=== PATIENT | male | born 1955 | race Caucasian/White ===

== ENCOUNTER 2021-07-13 13:22 | Emergency (ER) | payer BC ==
[2021-07-13] MEDS ORDERED: oxyCODONE 5 MG TABLET PO STA (13:33)
--- NOTE | 2021-07-13 13:34 | ED Physician Documentation ---
PD HPI LOWER EXT INJURY - Stated complaint Stated Complaint: RIGHT FOOT INJURY - History obtained from History obtained from: Patient (He tripped and fell yesterday with his foot going under him and now has severe pain of the lateral right foot when trying to walk. No other injuries.) PD PAST MEDICAL HISTORY - Past Medical History Cardiovascular: Hypertension GI: GI bleed - Past Surgical History Past Surgical History: Yes Cardiovascular: Coronary stent, Angioplasty - Present Medications Home Medications: Ambulatory Orders Medication Instructions Recorded Confirmed Clopidogrel [Plavix] 75 mg PO DAILY 07/13/21 07/13/21 Cyanocobalamin (Vitamin B-12) 1 tab PO DAILY 07/13/21 07/13/21 [Vitamin B-12 (1000 mcg sublingual)] Ergocalciferol [Vitamin D2] 1 cap PO Q7D 07/13/21 07/13/21 Losartan [Cozaar] 50 mg PO BID 07/13/21 07/13/21 Rosuvastatin Calcium [Crestor] 40 mg PO DAILY 07/13/21 07/13/21 traMADol [Ultram] 50 mg PO DAILY PRN 07/13/21 07/13/21 - Allergies Allergies/Adverse Reactions: Allergies Allergy/AdvReac Type Severity Reaction Status Date / Time allopurinol AdvReac Unknown Verified 07/13/21 13:38 NSAIDS (Non-Steroidal AdvReac Unknown Verified 07/13/21 13:38 Anti-Inflamma - Social History Does the pt smoke?: No Smoking Status: Never smoker Does the pt drink ETOH?: Yes Does the pt have substance abuse?: No - Immunizations Immunizations are current?: Yes PD ED PE NORMAL - Vitals Vital signs reviewed: Yes - General General: Alert and oriented X 3, No acute distress - Extremities Extremities: Other (Tender to the proximal fifth metatarsal and cuboid bone on the right without deformity or ankle tenderness.) - Neuro Neuro: Alert and oriented X 3, Normal speech Results - Vitals Vitals: Vital Signs - 24 hr 07/13/21 13:35 Temperature 36.4 C L Heart Rate 78 Respiratory 18 Rate Blood Pressure 156/88 H O2 Saturation 95 Oxygen O2 Source Room air PD MEDICAL DECISION MAKING - ED course ED course: 65-year-old gentleman with a right foot injury. He is exquisitely tender over the cuboid. X-ray read as negative with the exception of degenerative disease of the midfoot. On review of this x-ray by me I do wonder if some of the bony fragments lateral to the cuboid are potentially more of an acute avulsion type fracture. This was discussed with the patient and he is placed in a boot. I do not see any reason he could not weight-bear despite that finding. He declined prescription pain medications. Departure - Departure Disposition: 01 Home, Self Care Clinical Impression: Injury of foot Qualifiers: Encounter type: initial encounter Laterality: right Qualified Code(s): S99.921A - Unspecified injury of right foot, initial encounter Condition: Good Record reviewed to determine appropriate education?: Yes Instructions: ED Sprain Foot Follow-Up: Orthopedic Care [Provider Group] Comments: As discussed, the x-ray was read officially as normal, but my suspicion is you have an avulsion fracture of the cuboid bone of the right foot. Elevate, Tylenol and/or tramadol that you have at home for the pain. Return for new or worsening symptoms. I would keep the boot on but reasonable to weight-bear as tolerated when you can. Follow-up with the orthopedics clinic calling tomorrow for an appointment.
--- NOTE | 2021-07-13 14:21 | XRAY Report ---
PROCEDURE: Foot 3 View RT INDICATIONS: foot injury TECHNIQUE: 3 views of the foot were acquired. COMPARISON: None FINDINGS: Bones: No fractures or dislocations. No suspicious bony lesions. Degenerative changes are noted of the mid foot and within the first metacarpophalangeal joint which are mild to moderate. Soft tissues: No tibiotalar joint effusion. Spurring of the calcaneus at the plantar fascial and Ach illes insertions. IMPRESSION: No acute osseous abnormality. Reviewed by: Jose R Hines DO on 07/13/2021 1:20 PM [facility] Approved by: Jose R Hines DO on 07/13/2021 1:20 PM [facility] Station ID: [id number]
[2021-07-13 15:31] VITALS: BP 157/89
== END 2021-07-13 15:31 | disposition home or self-care (01) ==
LOC: ED 13:22
DX: S99.921A Unspecified injury of right foot, initial encounter (principal); W01.0XXA Fall on same level from slipping, tripping and stumbling without subsequent striking against object, initial encounter; I10 Essential (primary) hypertension
CPT/HCPCS: 73630; 99281; 99283; A9270

== ENCOUNTER 2023-08-02 13:52 | Outpatient (CLI) | payer MEDICARE, OTHER | END 2023-08-02 23:59 | disposition critical access hospital (66) | LOC: EMS 13:52 | DX: R41.0 Disorientation, unspecified (principal); R47.9 Unspecified speech disturbances | CPT/HCPCS: A0425; A0429 ==

== ENCOUNTER 2023-08-02 14:02 | Emergency (ER) | payer BC, MEDICARE, OTHER ==
[2023-08-02] MEDS ORDERED: iohexoL-300 100 ML VIAL ONE (14:10)
[2023-08-02 14:18] LABS: BASOPHILS % (AUTO) 0.3 %; EOSINOPHILS # (AUTO) 0.2 10^3/uL (0.0-0.7); EOSINOPHILS % (AUTO) 2.5 %; HCT - HEMATOCRIT 45.6 % (42.0-52.0); HGB - HEMOGLOBIN 14.9 g/dL (14.0-18.0); LYMPHOCYTES # (AUTO) 1.9 10^3/uL (1.5-3.5); LYMPHOCYTES % (AUTO) 30.1 %; MEAN CORPUSCULAR HGB CONC 32.7 g/dL (32.0-36.0); MEAN PLATELET VOLUME 10.2 fL (7.4-11.4); MONOCYTES # (AUTO) 0.5 10^3/uL (0.0-1.0); MONOCYTES % (AUTO) 7.2 %; NEUTROPHILS # (AUTO) 3.8 10^3/uL (1.5-6.6); NEUTROPHILS % (AUTO) 59.7 %; PLT - PLATELET COUNT 202 10^3/uL (130-450); RED CELL DISTRIBUTION WIDTH 14.2 % (12.0-15.0); WHITE BLOOD COUNT 6.4 x10^3/uL (4.8-10.8)
[2023-08-02 14:29] LABS: INR 1.1 (0.8-1.2); PT - PROTHROMBIN TIME 12.2 secs (9.9-12.6)
--- NOTE | 2023-08-02 14:30 | ED Physician Documentation ---
PD HPI FOCAL NEURO - Stated complaint Stated Complaint: POSS STROKE - Chief complaint Chief Complaint: Neuro - History obtained from History obtained from: Patient, Family, EMS - Additional information Additional information: Patient is a 67-year-old male with a history of cardiac stent, hemorrhagic stroke, on Plavix presenting for evaluation of word salad. Patient was last normal at 1300. He went to the [employer] center to drop off batteries. When he returned home he was trying to tell his a story about seeing at child that Was walking that concerned him but she states that his words were coming out like gibberish. She says that some of them were real words but that the sentences did not make sense and other words were nonsensical. She told him and asked him repeatedly to clarify what he was saying and told to that he was not making sense. She became increasingly alarmed when he continued to speak like this so called 911. When EMS arrived they also noted that he had confusion and was also having difficulties with his speech. He is a diabetic. Blood sugar was in the 130s. Patient denies headache. On upon arrival here he reports his speech is back to his baseline. Patient states he has a history of a hemorrhagic stroke last year. This occurred after he was on Paxlovid for COVID and also on Plavix. The neurologist he was seeing at [facility] hypothesized that it could be related to Paxlovid and Plavix combination. Review of Systems Constitutional: denies: Fever Cardiac: denies: Chest pain / pressure Respiratory: denies: Dyspnea Neurologic: reports: Difficulty speaking. denies: Headache PD PAST MEDICAL HISTORY - Past Medical History Past Medical History: Yes Cardiovascular: Hypertension Neuro: CVA GI: GI bleed - Past Surgical History Past Surgical History: Yes Cardiovascular: Coronary stent, Angioplasty - Present Medications Home Medications: Ambulatory Orders Medication Instructions Recorded Confirmed Clopidogrel [Plavix] 75 mg PO DAILY 07/13/21 07/13/21 Cyanocobalamin (Vitamin B-12) 1 tab PO DAILY 07/13/21 07/13/21 [Vitamin B-12 (1000 mcg sublingual)] Ergocalciferol [Vitamin D2] 1 cap PO Q7D 07/13/21 07/13/21 Losartan [Cozaar] 50 mg PO BID 07/13/21 07/13/21 Rosuvastatin Calcium [Crestor] 40 mg PO DAILY 07/13/21 07/13/21 traMADol [Ultram] 50 mg PO DAILY PRN 07/13/21 07/13/21 - Allergies Allergies/Adverse Reactions: Allergies Allergy/AdvReac Type Severity Reaction Status Date / Time allopurinol AdvReac Unknown Verified 08/02/23 14:22 NSAIDS (Non-Steroidal AdvReac Unknown Verified 08/02/23 14:22 Anti-Inflamma - Social History Does the pt smoke?: No Smoking Status: Never smoker Does the pt drink ETOH?: Yes Does the pt have substance abuse?: No - Immunizations Immunizations are current?: Yes - POLST Patient has POLST: No PD ED PE NORMAL - General General: Alert and oriented X 3, No acute distress, Well developed/nourished - HEENT HEENT: Atraumatic, PERRL, Moist mucous membranes, Pharynx benign - Neck Neck: Supple, no meningeal sign - Cardiac Cardiac: RRR, Strong equal pulses - Respiratory Respiratory: No respiratory distress, Clear bilaterally - Abdomen Abdomen: Normal bowel sounds, Soft, Non tender, Non distended - Derm Derm: Warm and dry - Neuro Neuro: Alert and oriented X 3, supervisor remelt 2-12 intact, No motor deficit, No sensory deficit, Normal speech, Other (Normal gait) Results - Vitals Vitals: Vital Signs - 24 hr 08/02/23 08/02/23 08/02/23 14:17 14:51 15:21 Temperature 37 C Heart Rate 88 89 78 Respiratory 16 16 16 Rate Blood Pressure 138/92 H 121/71 125/76 O2 Saturation 97 96 96 08/02/23 08/02/23 16:00 17:00 Temperature Heart Rate 82 76 Respiratory 16 16 Rate Blood Pressure 119/74 122/80 O2 Saturation 98 98 Oxygen O2 Source Room air - EKG (time done) 1439 EKG releavant findings:: EKG personally interpreted by author of this note. Relevant findings are: Rate 85, normal sinus rhythm, no STEMI, no ST depressions - Labs Labs: Laboratory Tests 08/02/23 08/02/23 08/02/23 14:05 14:05 14:05 WBC 6.4 RBC 4.80 Hgb 14.9 Hct 45.6 MCV 95.0 H MCH 31.0 MCHC 32.7 RDW 14.2 Plt Count 202 MPV 10.2 Neut # (Auto) 3.8 Lymph # (Auto) 1.9 [place] # (Auto) 0.5 Eos # (Auto) 0.2 Baso # (Auto) 0.0 Absolute Nucleated RBC 0.00 Nucleated RBC % 0.0 PT 12.2 INR 1.1 Sodium 138 Potassium 4.1 Chloride 105 Carbon Dioxide 24 Anion Gap 9.0 BUN 17 Creatinine 1.1 Estimated GFR (MDRD) 67 L Glucose 115 H POC Whole Bld Glucose Calcium 9.9 Total Bilirubin 0.7 AST 34 ALT 25 Alkaline Phosphatase 85 Total Protein 7.4 Albumin 4.2 Globulin 3.2 Albumin/Globulin Ratio 1.3 Lipase 45 08/02/23 14:53 WBC RBC Hgb Hct MCV MCH MCHC RDW Plt Count MPV Neut # (Auto) Lymph # (Auto) [place] # (Auto) Eos # (Auto) Baso # (Auto) Absolute Nucleated RBC Nucleated RBC % PT INR Sodium Potassium Chloride Carbon Dioxide Anion Gap BUN Creatinine Estimated GFR (MDRD) Glucose POC Whole Bld Glucose 131 H Calcium Total Bilirubin AST ALT Alkaline Phosphatase Total Protein Albumin Globulin Albumin/Globulin Ratio Lipase PD Medical Decision Making - ED course Complexity details: reviewed results, d/w patient, d/w family ED course: Patient is a 67 show male presenting for evaluation of an episode of word salad that occurred prior to arrival. It lasted approximately 30 minutes or so. It has resolved upon arrival here. He does have a history of a stroke in the past. He is on Plavix. No focal deficits here. CT head and angios were obtained and reviewed with no large vessel occlusion or hemorrhage. I did speak with [employer]. He is not a TN K candidate for several reasons. MRI is ordered. CBC, chemistries, EKG were obtained and reviewed and without significant findings. Patient understands plan for MRI. He does not want to be admitted to the hospital. Plan is that if MRI is negative for stroke he will continue on his regular Plavix dosing with plan for close follow-up. If there is a stroke then we should obtain testing to see if is a Plavix responder. D/W Dr. Lindsay (Tele stroke) - Agrees that patient is not a TNK candidate given his history of hemorrhagic bleed and also that he is on Plavix and also because his symptoms have resolved. Recommends getting an MRI. Recommends keeping him on just Plavix for now. If the MRI shows a stroke he recommends P2Y12 test to see if he is a Plavix responder. 172 - Remains symptom-free. Departure - Departure Clinical Impression: Difficulty with speech Condition: Stable Forms: PCP List
[2023-08-02 14:38] LABS: ALBUMIN 4.2 g/dL (3.2-5.5); ALBUMIN/GLOBULIN RATIO 1.3 (1.0-2.2); BILIRUBIN,TOTAL 0.7 mg/dL (0.2-1.0); CALCIUM 9.9 mg/dL (8.5-10.3); CREATININE 1.1 mg/dL (0.6-1.3); POTASSIUM 4.1 mmol/L (3.5-4.5); TOTAL PROTEIN 7.4 g/dL (6.4-8.9)
--- NOTE | 2023-08-02 14:43 | CT Report ---
PROCEDURE: Head W/O Stroke Protocol INDICATIONS: word salad/ last normal 1300 TECHNIQUE: Noncontrast 4.5 mm thick angled axial sections acquired from the foramen magnum to the vertex, with c oronal reformats. For radiation dose reduction, the following was used: automated exposure control, adjustment of mA and/or kV according to patient size. COMPARISON: None. FINDINGS: Image quality: Excellent. CSF spaces: Basal cisterns are patent. No extra-axial fluid collections. Ventricles are normal in size and shape. Brain: No midline shift. No intracranial masses or hemorrhage. [place]-white matter interface is norm al. Skull and face: Calvarium and visualized facial bones are intact, without suspicious lesions. Sinuses: Visualized sinuses and mastoids are clear. IMPRESSION: No acute intracranial pathology Findings were discussed with ordering provider Dr. Morales in the ER on 08/02/2023 at 2:41 PM. This study fulfills neurological imaging criteria for inclusion or exclusion of acute stroke therapie s based on available published neurological imaging guidelines. Reviewed by: Getachew Tolentino MD on 08/02/2023 2:42 PM PST Approved by: Getachew Tolentino MD on 08/02/2023 2:42 PM PST Station ID: [id number]
[2023-08-02] MEDS ORDERED: iohexoL-300 100 ML VIAL IVP ONE (14:44)
--- NOTE | 2023-08-02 14:54 | CT Report ---
PROCEDURE: Angio Head/Neck INDICATIONS: word salad/ last normal 1300 TECHNIQUE: After the administration of intravenous contrast, 1 mm thick sections acquired from the aortic arch t hrough the [place] of [place]. 3-dimensional knwntbm-aivprdikk-llkalhehov (MIP) and/or volume renderin g reformats were acquired of the central intracranial vasculature and neck separately. For radiation dose reduction, the following was used: automated exposure control, adjustment of mA and/or kV acco rding to patient size. COMPARISON: None. FINDINGS: Image quality: Diagnostic. HEAD CT: CSF Spaces: Basal cisterns are patent. No extra-axial fluid collections. Ventricles are normal in size and shape. Brain: The brain is within normal limits for age and scanning technique. Skull and face: Calvarium and visualized facial bones appear intact, without suspicious lesions. Sinuses: Visualized sinuses and mastoids are clear. HEAD CT ANGIOGRAPHY: Anterior circulation: Atherosclerotic calcifications are noted in distal intracranial portion of inte rnal carotid arteries bilaterally with less than 50% stenosis. The flow within the paired anterior ce rebral arteries is normal and symmetric. The flow within the middle cerebral arteries is normal and symmetric. The anterior communicating artery is seen. No aneurysms are seen. Posterior circulation: Visualized portions of the vertebral arteries demonstrate normal caliber, and join to form a normal appearing basilar artery. There is nonvisualization of right T1 segment with more distal portion of right posterior cerebral artery supplied from anterior circulation inferior po sterior communicating artery. Flow within more distal portion of bilateral posterior cerebral arterie s is normal and symmetric. No aneurysms are seen. NECK CT ANGIOGRAPHY: Carotid system: The great vessels demonstrate a conventional anatomy as they arise from the aortic a rch. The origins of the common carotid arteries appear patent. The common carotid arteries demonstr ate normal caliber and courses. The bifurcation regions are both widely patent. The internal caroti d arteries demonstrate normal calibers and courses. Posterior circulation: The origins of the vertebral arteries both appear widely patent. Dominant rig ht vertebral artery is seen. The more superior extracranial portions of both vertebral arteries also demonstrate normal courses and calibers. They join to form a normal appearing basilar artery. Soft tissues: Visualized neck soft tissues demonstrate no suspicious abnormalities. Bones: No suspicious bony lesions. Visualized cervical spine appears normally aligned. IMPRESSION: 1. No CT evidence of acute intracranial abnormalities. No area of abnormal intracranial enhancement. 2. Nonvisualization of P1 segment of right posterior cerebral artery with P2 segment supplied from an terior circulation anterior right posterior communicating artery. No other hemodynamically significan t stenosis or aneurysm is seen in the intracranial circulation. 3. No significant abnormality is seen within the arteries of the neck. The estimate of stenosis included in the report of the imaging study was calculated using the NASCET method Reviewed by: Getachew Tolentino MD on 08/02/2023 2:52 PM PST Approved by: Getachew Tolentino MD on 08/02/2023 2:52 PM PST Station ID: [id number]
--- NOTE | 2023-08-02 18:20 | MRI Report ---
PROCEDURE: Brain WO INDICATIONS: CVA symptoms/word salad TECHNIQUE: Noncontrast axial T1 spin echo, axial T2 fast spin echo, sagittal and axial FLAIR, coronal T2 fast sp in echo, axial gradient echo, axial diffusion and ADC through the brain. COMPARISON: Correlation is made with the accompanying imaging. FINDINGS: Image quality: Excellent. CSF Spaces: Basal cisterns are patent. No extra-axial fluid collections. Ventricles are normal in size and shape. Brain: No intracranial masses or hemorrhage. [place]/white matter interface is normal. Brainstem appe ars normal. Diffusion-weighted images demonstrate no acute ischemic insult. No chronic ischemic ins ults. Normal intravascular flow voids are present. Age-appropriate brain parenchymal volume loss an d chronic small vessel ischemic change can be seen. Skull and face: Calvarium has normal marrow signal. Orbits appear normal. Sinuses: Sinuses and mastoids are clear. IMPRESSION: No findings of acute or subacute infarction are seen. Age-appropriate brain parenchymal volume loss and chronic small vessel ischemic change can be seen. Reviewed by: Thomas Lynn MD on 08/02/2023 5:18 PM [facility] Approved by: Thomas Lynn MD on 08/02/2023 5:18 PM [facility] Station ID: [id number]
[2023-08-02 18:38] VITALS: BP 135/86; O2SAT 100
--- NOTE | 2023-08-02 18:49 | ED Physician Documentation ---
ED Addendum - Addendum Addendum: 08/02/23 18:47 Patient was signed out to me by Dr. Morales, patient is awaiting an MRI, if MRI is negative, plan is to DC home on current medications. MRI resulted and does not show any acute abnormalities. Patient will be discharged home. Asymptomatic at this time. Patient counseled regarding signs and symptoms for which I believe and urgent re-evaluation would be necessary. Patient with good understanding of and agreement to plan and is comfortable going home at this time This document was made in part using voice recognition software. While efforts are made to proofread this document, sound alike and grammatical errors may occur. Departure - Departure Disposition: 01 Home, Self Care Clinical Impression: Difficulty with speech, TIA (transient ischemic attack) Condition: Stable Instructions: ED Transient Ischemic Attack Follow-Up: your,doctor in 1 week [Other] Comments: Your MRI does not show any acute abnormalities today. Please follow-up with your doctor for further care. Dr. Morales spoke with Dr. Diaz, neurologist today. They do not recommend any medication changes at this time. Please return if you worsen. Forms: PCP List
== END 2023-08-02 19:08 | disposition home or self-care (01) ==
LOC: EDUNIT# → ED 14:02
DX: G45.9 Transient cerebral ischemic attack, unspecified (principal); R47.01 Aphasia; I10 Essential (primary) hypertension; Z95.5 Presence of coronary angioplasty implant and graft; Z79.01 Long term (current) use of anticoagulants
CPT/HCPCS: 36415; 70450; 70496; 70498; 70551; 80053; 83690; 85025; 85610; 93005; 99283; 99284; Q9967